=== PATIENT | female | born 1990 | race Native Hawaiian/Other Pacific Islander ===

== ENCOUNTER 2016-03-29 13:59 | Outpatient (CLI) | payer OTHER ==
[~2016-03-29 13:59] MED LIST: CARAFATE1 GM PO; CIPRO500 MG PO; DICY20TA34 PO; DIVIGEL TD; HYDR10TA47 PO; INVOKANA100 MG PO; LEXAPRO20 MG OR; LISI5TAB10 PO; LORA0.5T17 PO; METF500T PO; METOCLOPRAM10 MG PO; NEXIUM 24HR20 MG PO; NEXIUM40 M1 PO; PANT40TA PO; PROVERA5 MG OR; PROVERA5 MG PO; ZANTAC300 MG PO; ZOLOFT25 MG PO
== END 2016-03-29 20:52 | disposition home or self-care (01) ==
LOC: RAD 13:59
DX: M25.531 Pain in right wrist (principal)

== ENCOUNTER 2016-05-02 12:37 | Outpatient (CLI) | payer OTHER ==
[2016-05-03] MEDS ORDERED: OMEP40CA PO (15:10)
[2016-05-03] MEDS ORDERED: METOCLOPRAM10 MG OR (15:11)
[2016-05-03] MEDS ORDERED: MULTIVITAMI1 OR (15:12)
== END 2016-05-02 19:23 | disposition home or self-care (01) ==
LOC: RAD 12:37
DX: K86.1 Other chronic pancreatitis (principal)

== ENCOUNTER 2016-05-03 13:13 | Observation (INO) | payer OTHER ==
[~2016-05-03] VITALS: Ht 162.6 cm; Wt 93.9 kg
[2016-05-03 14:57] VITALS: BP 135/84; TEMP 98; Ht 162.6 cm; Wt 93.9 kg
[2016-05-03] MEDS ORDERED: OMEP40CA PO (15:10)
[2016-05-03] MEDS ORDERED: METOCLOPRAM10 MG OR (15:11)
[2016-05-03] MEDS ORDERED: MULTIVITAMI1 OR (15:12)
[2016-05-03 15:46] LABS: POTASSIUM 3.7 mmol/L (3.6-5.2); SODIUM 134 mmol/L (136-145)
[2016-05-03 15:55] LABS: PLATELET COUNT 372 K/uL (152-353)
[2016-05-03 16:00] VITALS: BP 124/82; TEMP 97.7
[2016-05-03 20:00] VITALS: BP 107/55; TEMP 98.1
[2016-05-04 00:15] VITALS: BP 109/57; TEMP 97.7
[2016-05-04 04:00] VITALS: BP 85/42; TEMP 98.1
[2016-05-04 05:16] LABS: PLATELET COUNT 309 K/uL (152-353)
[2016-05-04 05:24] LABS: POTASSIUM 3.9 mmol/L (3.6-5.2); SODIUM 137 mmol/L (136-145)
[2016-05-04 07:29] VITALS: BP 110/62; TEMP 98
[2016-05-04 11:15] VITALS: BP 101/61; TEMP 98
== END 2016-05-04 15:06 | disposition home or self-care (01) ==
LOC: MED/SURG 13:13
PROVIDERS: ADMIT Family Medicine
DX: K56.41 Fecal impaction (principal); R10.12 Left upper quadrant pain; E86.0 Dehydration; K31.84 Gastroparesis
CPT/HCPCS: 36415; 80053; 81000; 82150; 83690; 83735; 85027; 87040; 96365; 96366; 96367; 96375; 99220; G0378; G0379; J2175; J2765

== ENCOUNTER 2016-05-29 08:32 | Emergency (ER) | payer OTHER ==
[~2016-05-29] VITALS: Ht 165.1 cm; Wt 90.7 kg
[~2016-05-29 08:32] MED LIST changes: +METOCLOPRAM10 MG OR; +MULTIVITAMI1 OR; +OMEP40CA PO
[2016-05-29 08:35] VITALS: TEMP 98.5
[2016-05-29 09:43] LABS: PLATELET COUNT 329 K/uL (152-353)
[2016-05-29 09:49] LABS: POTASSIUM 3.7 mmol/L (3.6-5.2); SODIUM 141 mmol/L (136-145)
[2016-05-29 12:45] VITALS: BP 123/86
== END 2016-05-29 12:50 | disposition home or self-care (01) ==
LOC: ED 08:32
PROVIDERS: Emergency Medicine
DX: R10.12 Left upper quadrant pain (principal)
CPT/HCPCS: 80053; 81000; 81025; 82150; 83690; 85027; 96360; 96361; 96374; 96375; 99284; J2270; J2405; J3490; Q9963

== ENCOUNTER 2016-10-01 19:00 | Emergency (ER) | payer BC ==
[~2016-10-01] VITALS: Ht 162.6 cm; Wt 88.9 kg
[2016-10-01 19:57] LABS: PLATELET COUNT 342 K/uL (152-353)
[2016-10-01 20:18] LABS: POTASSIUM 4.4 mmol/L (3.6-5.2); SODIUM 142 mmol/L (136-145)
[2016-10-01 21:45] VITALS: BP 148/92; TEMP 98.2
== END 2016-10-01 21:57 | disposition home or self-care (01) ==
LOC: ED 19:00
DX: K31.84 Gastroparesis (principal); K29.70 Gastritis, unspecified, without bleeding; K85.90 Acute pancreatitis without necrosis or infection, unspecified
CPT/HCPCS: 36415; 80053; 82150; 83690; 85027; 99282

== ENCOUNTER 2016-10-04 15:47 | Emergency (ER) | payer BC ==
[~2016-10-04] VITALS: Ht 165.1 cm; Wt 88.9 kg
[2016-10-04] MEDS ORDERED: ONDA4TAB3 PO (16:09)
[2016-10-04] MEDS ORDERED: LINZESS145 MCG OR (16:09)
[2016-10-04 17:19] LABS: PLATELET COUNT 328 K/uL (152-353)
[2016-10-04 17:29] LABS: POTASSIUM 4.2 mmol/L (3.6-5.2); SODIUM 139 mmol/L (136-145)
[2016-10-04 20:25] VITALS: BP 153/93; TEMP 98.7
== END 2016-10-04 20:34 | disposition home or self-care (01) ==
LOC: ED 15:47
PROVIDERS: Emergency Medicine
DX: R10.9 Unspecified abdominal pain (principal); R11.2 Nausea with vomiting, unspecified
CPT/HCPCS: 36415; 80053; 81000; 82150; 83605; 83690; 85027; 96361; 96374; 96375; 96376; 99284; J2270; J2405; J2765; Q9963

== ENCOUNTER 2017-03-26 17:01 | Observation (INO) | payer BC ==
[~2017-03-26] VITALS: Ht 162.6 cm; Wt 92.1 kg
[~2017-03-26 17:01] MED LIST changes: +LINZESS145 MCG OR; +ONDA4TAB3 PO
[2017-03-26 18:26] LABS: POTASSIUM 4.1 mmol/L (3.6-5.2)
[2017-03-26 18:39] LABS: PLATELET COUNT 341 K/uL (152-353)
[2017-03-26 20:00] VITALS: BP 111/64; TEMP 98.2
[2017-03-27] VITALS (7 sets, daily range): BP systolic 105–119; BP diastolic 48–82; TEMP 97.1–99; Ht 162.6 cm; Wt 92.1 kg
[2017-03-27 11:02] LABS: PLATELET COUNT 350 K/uL (152-353)
[2017-03-27 11:20] LABS: POTASSIUM 4.2 mmol/L (3.6-5.2)
[2017-03-28] VITALS: BP 100/64; TEMP 98.5
[2017-03-28 04:00] VITALS: BP 91/51; TEMP 97.8
[2017-03-28 05:36] LABS: PLATELET COUNT 273 K/uL (152-353)
[2017-03-28 06:13] LABS: POTASSIUM 3.8 mmol/L (3.6-5.2)
[2017-03-28 08:00] VITALS: BP 107/55; TEMP 98.6
--- NOTE | 2017-03-28 08:00 | NUR ---
AWAKE, WARM COMPRESS APPLIED TO R BREAST
[2017-03-28 12:00] VITALS: BP 116/81; TEMP 98.5
--- NOTE | 2017-03-28 12:04 | NUR ---
PT LYING BED WATCHING TV. ICE AND COKE GIVEN. NO C/O AT THIS TIME
--- NOTE | 2017-03-28 12:49 | NUR ---
IV CATH REMOVED, TIP INTACT. DISCHARGE INSRUCTIONS GIVEN. PT INSTRUCTED TO CALL WHEN READY TO LEAVE
== END 2017-03-28 12:45 | disposition home or self-care (01) ==
LOC: MED/SURG 17:01
PROVIDERS: ADMIT Family Medicine
DX: N61.0 Mastitis without abscess (principal); R50.81 Fever presenting with conditions classified elsewhere
CPT/HCPCS: 36415; 36591; 80053; 83735; 85027; 87040; 96365; 96366; 96367; 99220; G0378; G0379; J1200; J1885; J2405; J2543; J2930; J3490

== ENCOUNTER 2019-03-11 18:29 | Emergency (ER) | payer BC ==
[~2019-03-11] VITALS: Ht 165.1 cm; Wt 76.2 kg
[2019-03-11 19:50] VITALS: BP 118/64; TEMP 97.9
== END 2019-03-11 19:50 | disposition home or self-care (01) ==
LOC: ED 18:29
DX: J06.9 Acute upper respiratory infection, unspecified (principal); R19.7 Diarrhea, unspecified
CPT/HCPCS: 87502; 87651; 99283

== ENCOUNTER 2020-02-14 21:32 | Emergency (ER) | payer BC ==
[~2020-02-14] VITALS: Ht 165.1 cm; Wt 76.2 kg
[2020-02-14 22:44] LABS: PLATELET COUNT 213 K/uL (152-353)
[2020-02-14 23:08] LABS: POTASSIUM 3.2 mmol/L (3.6-5.2); SODIUM 135 mmol/L (136-145)
[2020-02-15 03:26] VITALS: BP 138/60
== END 2020-02-15 03:26 | disposition short-term general hospital (02) ==
LOC: ED 21:32
PROVIDERS: Emergency Medicine Emergency Medical Services
PROC: 0T9B70Z Drainage of Bladder with Drainage Device, Via Natural or Artificial Opening (ICD-10-PCS; principal; 2020-02-14)
DX: J69.0 Pneumonitis due to inhalation of food and vomit (principal); T40.601A Poisoning by unspecified narcotics, accidental (unintentional), initial encounter; Z20.828 Contact with and (suspected) exposure to other viral communicable diseases; F17.210 Nicotine dependence, cigarettes, uncomplicated; Y92.89 Other specified places as the place of occurrence of the external cause
CPT/HCPCS: 36415; 36600; 51702; 80053; 80307; 80320; 80329; 81000; 81025; 82805; 83605; 84484; 85027; 85379; 87040; 87635; 93005; 96360; 96361; 96365; 96375; 99285; J0696; J2310; J3370; Q9963; U0003

== ENCOUNTER 2021-05-24 16:51 | Emergency (ER) | payer OTHER ==
[~2021-05-24] VITALS: Ht 162.6 cm; Wt 90.7 kg
[2021-05-24 17:42] LABS: PLATELET COUNT 283 K/uL (152-353)
[2021-05-24 17:52] LABS: POTASSIUM 4.2 mmol/L (3.6-5.2)
[2021-05-24 20:56] VITALS: BP 122/84; TEMP 98.2
== END 2021-05-24 20:56 | disposition home or self-care (01) ==
LOC: ED 16:51
PROVIDERS: Emergency Medicine
DX: I10 Essential (primary) hypertension (principal); R00.0 Tachycardia, unspecified; N39.0 Urinary tract infection, site not specified; F11.90 Opioid use, unspecified, uncomplicated
CPT/HCPCS: 80053; 80307; 81000; 84484; 85027; 87077; 87086; 87088; 87186; 93005; 96365; 96375; 99284; J0744; J1200; J3490

== ENCOUNTER 2022-06-19 01:27 | Emergency (ER) | payer BC ==
[~2022-06-19] VITALS: Ht 162.6 cm; Wt 108.9 kg
[2022-06-19 01:27] VITALS: BP 159/99; TEMP 98.9
== END 2022-06-19 02:58 | disposition home or self-care (01) ==
LOC: ED 01:27
DX: S42.392A Other fracture of shaft of left humerus, initial encounter for closed fracture (principal); W01.0XXA Fall on same level from slipping, tripping and stumbling without subsequent striking against object, initial encounter; Y92.89 Other specified places as the place of occurrence of the external cause
CPT/HCPCS: 81002; 96372; 99283; J1885